=== PATIENT | male | born 1935 | race Caucasian/White ===

== ENCOUNTER → 2016-10-16 | Outpatient (CLI) | payer OTHER ==
[~2016-10-16] MED LIST: ASPIRIN81 M2 PO; CIPRO PO; CIPRO250 MG PO; FLOMAX0.4 M1 PO; LIPITOR40 MG PO; LOPRESSOR PO; LOSARTAN POTAS100 MG PO; NIACIN PO; NORCO1 TAB 10/3 PO; PLAVIX PO
--- NOTE | ~2016-10-16 | US85 ---
[facility] A Service of [facility] & [facility] RADIOLOGY TEXT RESULTS PATIENT: ANTOINETTE CANNON LOCATION: CNIV : 37 UNIT #: [id number] AGE: [address]: Roberto Rowell MD SEX: M ORDER DR: [id number] [facility] [address] [place], [place] [address] [id number] O MR#: [id number] Acc #: [id number] NAME: ANTOINETTE CANNON. : 1935 SEX: M STUDY DATE/TIME: 10/16/2016 14:35 UNIT: CNIV ROOM: STUDY DESCRIPTION: [facility] [place] [employer] or [facility] Attending Physician: Roberto Rowell M.D. Referring Physician: Roberto Rowell M.D. Ordering Physician: Roberto Rowell M.D. Primary Care Physician: Roberto Rowell M.D. MEDICAL IMAGING REPORT This report is preliminary unless electronic signature is present EXAM Left lower extremity venous duplex, 10/16/2016. HISTORY Left calf pain for 2 weeks. Evaluate for deep vein thrombosis. No known injury. TECHNIQUE Venous ultrasound examination of the left lower extremity was performed using grayscale, spectral Doppler and color flow Doppler imaging. FINDINGS The examination is negative. There is no evidence of left lower extremity deep venous thrombus from the groin to the lower calf. Visualized greater saphenous vein is also patent. IMPRESSION Negative examination. No evidence of left lower extremity deep venous thrombosis. Dictated by... Cecil Ibarra M.D. THIS IS AN ELECTRONICALLY VERIFIED REPORT Cecil Ibarra M.D. at 10/17/2016 7:33 AM JORGE L/catalino TD: 10/16/2016 16:07 JOB #: [id number] MEDICAL IMAGING REPORT [facility] A Service of [facility] & [facility] RADIOLOGY TEXT RESULTS PATIENT: ANTOINETTE CANNON LOCATION: CNIV : 37 UNIT #: [id number] AGE: [address]: Roberto Roewll MD SEX: M ORDER DR: Page 1 of 1 COPY
== END | disposition home or self-care (01) ==
LOC: CNIV 14:17
DX: M79.662 Pain in left lower leg (principal); I10 Essential (primary) hypertension
CPT/HCPCS: 93971; P9045